=== PATIENT | female | born 1985 | race Caucasian/White ===

== ENCOUNTER 2017-01-04 00:20 | Emergency (ER) | payer OTHER ==
[~2017-01-04] VITALS: Ht 154.9 cm; Wt 61.2 kg
[2017-01-04 00:23] VITALS: BP 100/66
--- NOTE | 2017-01-04 00:36 | NUR ---
PT TAKEN TO BED 1
--- NOTE | 2017-01-04 00:40 | NUR ---
31/F CAME IN DUE TO RT EAR PAIN STARTED TODAY, SHE POKED HER EAR WHILE CLEANING. PATIENT STATES PAIN OF 0/10 AT THIS TIME; VSS; PATIENT POSITIONED FOR COMFORT; HOB ELEVATED; BEDRAILS UP X2; BED DOWN. ER MD MADE AWARE OF PT STATUS.
[2017-01-04 01:01] VITALS: BP 105/65
--- NOTE | 2017-01-04 01:04 | NUR ---
DR. LYNN AT BEDSIDE EVALUATING PT.
--- NOTE | 2017-01-04 01:05 | NUR ---
Patient discharged with v/s stable BY DR. LYNN. Written and verbal after care instructions given and explained BY DR. LYNN. Patient alert, oriented and verbalized understanding of instructions BY DR. LYNN. Ambulatory with steady gait. All questions addressed prior to discharge BY DR. LYNN. ID band removed BY DR. LYNN. Patient advised to follow up with PMD BY DR. LYNN. Rx of DEBROX 6.5% OTIC DROPS 5 DROPS 3 TIMES A DAY given BY DR. LYNN. Patient educated on indication of medication including possible reaction and side effects DR. LYNN. Opportunity to ask questions provided and answered BY DR. LYNN.
== END 2017-01-04 01:05 | disposition home or self-care (01) ==
LOC: MED 00:20
DX: H61.21 Impacted cerumen, right ear (principal)

== ENCOUNTER 2017-09-01 13:38 | Emergency (ER) | payer OTHER ==
[~2017-09-01] VITALS: Ht 160 cm; Wt 75.3 kg
[2017-09-01 13:43] VITALS: BP 109/71
--- NOTE | 2017-09-01 15:02 | NUR ---
Patient to bed 04.
--- NOTE | 2017-09-01 15:15 | NUR ---
PATIENT PRESENTS TO ED WITH PT PRESENTS TO ER W/C/O RIGHT FINGERTIP NUMBNESS SINCE THIS AM. PT DENIES ANY INJURY OR TRAUMA. DENIES N/V/D; SKIN IS PINK/WARM/DRY; AAOX4 WITH EVEN AND STEADY GAIT; LUNGS CLEAR BL; HR EVEN AND REGULAR; PT DENIES ANY FEVER, CP, SOB, OR COUGH AT THIS TIME; PATIENT STATES PAIN OF 7/10 AT THIS TIME; VSS; PATIENT POSITIONED FOR COMFORT; HOB ELEVATED; BEDRAILS UP X2; BED DOWN. ER MD MADE AWARE OF PT STATUS.
[2017-09-01 16:07] VITALS: BP 112/77
== END 2017-09-01 16:07 | disposition home or self-care (01) ==
LOC: MED 13:38
DX: M54.12 Radiculopathy, cervical region (principal); R03.0 Elevated blood-pressure reading, without diagnosis of hypertension
CPT/HCPCS: 72040; 99284

== ENCOUNTER 2020-07-18 00:30 | Emergency (ER) | payer OTHER ==
[~2020-07-18] VITALS: Ht 157.5 cm; Wt 83.9 kg
[2020-07-18 00:42] VITALS: BP 123/88
--- NOTE | 2020-07-18 00:44 | NUR ---
To ED bed 11
--- NOTE | 2020-07-18 00:55 | NUR ---
35 YO F BIB SELF FOR C/C OF 05/21 LEFT ARM CHRONIC CARPAL TUNNEL PAIN THAT BEGAN WORSENING YESTERDAY. PT STATES SHE HAS HAD BILATERAL CARPAL TUNNEL SURGERY IN APRIL 2019 AND PT GOT RELIEF IN R ARM BUT NOT L ARM POST SURGERY. PT STATES HER PAIN IS ACHING WITH NUMBNESS AND TINGELING THAT COMES AND GOES. PT DENIES OTC MEDICATIONS TO RELIEVE PAIN. BED LOCKED AND IN LOWEST POSITION. SIDE RAILS X1. MED HX: CARPAL TUNNEL RX: DENIES NKA
--- NOTE | 2020-07-18 01:00 | NUR ---
RAD AT BEDSIDE
--- NOTE | 2020-07-18 02:02 | NUR ---
ERMD AT BEDSIDE
--- NOTE | 2020-07-18 02:28 | NUR ---
DIONICIO SAID TO D/C UA ORDER
[2020-07-18 02:35] VITALS: BP 108/81
--- NOTE | 2020-07-18 02:35 | NUR ---
Patient discharged with v/s stable. Written and verbal after care instructions given and explained. Patient alert, oriented and verbalized understanding of instructions. Ambulatory with steady gait. All questions addressed prior to discharge. ID band removed. Patient advised to follow up with PMD. Rx of FLEXERIL, MOTRIN given. Patient educated on indication of medication including possible reaction and side effects. Opportunity to ask questions provided and answered.
== END 2020-07-18 02:35 | disposition home or self-care (01) ==
LOC: MED 00:30
DX: G56.02 Carpal tunnel syndrome, left upper limb (principal)
CPT/HCPCS: 73060; 73090; 99284; Q0092

== ENCOUNTER 2021-09-08 19:33 | Emergency (ER) | payer OTHER ==
[~2021-09-08] VITALS: Ht 157.5 cm; Wt 85.7 kg
[2021-09-08 20:19] VITALS: BP 123/79
--- NOTE | 2021-09-08 20:22 | NUR ---
patient to [facility] ambulatory
--- NOTE | 2021-09-08 20:32 | NUR ---
gave patient a urine cup for collection
--- NOTE | 2021-09-08 22:30 | NUR ---
PT AMB TO BED 4
[2021-09-08] MEDS ORDERED: ONDANSETRON 4 MG ODT PO ONE (23:00)
[2021-09-08] MEDS ORDERED: MECLIZINE 25 MG TAB PO ONE (23:00)
--- NOTE | 2021-09-08 23:00 | NUR ---
PT TAKEN TO CT VIA W/C
--- NOTE | 2021-09-08 23:29 | NUR ---
PT GETTING EKG AT BEDSIDE. SHE WAS GIVEN ORDRED MECCLAZINE ANTIVERT AND ZOFRAN SL. EXPLAINED PURPOSE OF MEDICATION, PT VERBLEIZED UNDERSTANDING.
[2021-09-08 23:36] LABS: BASOPHILS # (AUTO) 0.1 K/uL (0.00-0.22); BASOPHILS % (AUTO) 0.7 % (0.0-2.0); EOSINOPHILS # (AUTO) 0.2 K/uL (0-0.4); EOSINOPHILS % (AUTO) 1.9 % (0.0-4.0); HEMATOCRIT 39.9 % (36-48); HEMOGLOBIN 13.5 g/dL (12.0-16.0); LYMPHOCYTES # (AUTO) 4.5 K/uL (2.5-16.5); LYMPHOCYTES % (AUTO) 49.7 % (20.5-51.1); MEAN CORPUSCULAR HEMOGLOBIN 28 pg (27-31); MEAN CORPUSCULAR HGB CONC 34 g/dL (33-37); MONOCYTES # (AUTO) 0.5 K/uL (0.8-1.0); MONOCYTES % (AUTO) 5.9 % (1.7-9.3); NEUTROPHILS # (AUTO) 3.8 K/uL (1.8-7.7); NEUTROPHILS % (AUTO) 41.8 % (42.2-75.2); PLATELET COUNT (AUTO) 251 K/uL (140-450); RED BLOOD CELL COUNT(AUTO) 4.86 MIL/uL (4.20-5.40); WHITE BLOOD COUNT (AUTO) 9.1 K/uL (4.8-10.8)
[2021-09-08 23:57] LABS: ALBUMIN 3.8 g/dL (3.4-5.0); ANION GAP 11.6 (8-16); CARBON DIOXIDE 29.3 mmol/L (21-32); CREATININE 0.7 mg/dL (0.6-1.3); POTASSIUM 3.9 mmol/L (3.5-5.1); TOTAL BILIRUBIN 0.3 mg/dL (0.0-1.0)
[2021-09-09] MEDS ORDERED: MECL-303 PO (00:22)
[2021-09-09 00:48] VITALS: BP 97/103
== END 2021-09-09 00:45 | disposition home or self-care (01) ==
LOC: MED 19:33
DX: R42 Dizziness and giddiness (principal); Z98.890 Other specified postprocedural states; Z79.899 Other long term (current) drug therapy
CPT/HCPCS: 36415; 70450; 80053; 81002; 81025; 85025; 93005; 99285; J8597; Q0162